=== PATIENT | female | born 1950 | race Hispanic/Latino ===

== ENCOUNTER 2017-11-18 06:27 | Emergency (ER) | payer OTHER ==
[2017-11-18 07:42] LABS: EOSINOPHILS % (AUTO) 3.5 % (0.0-8.0); HEMATOCRIT 41.5 % (36-48); LYMPHOCYTES % (AUTO) 21.8 % (21.0-51.0); MEAN CORPUSCULAR HEMOGLOBIN 28.8 pg (27.0-33.0); MEAN CORPUSCULAR HGB CONC 33.7 g/dL (32.0-36.0); MEAN CORPUSCULAR VOLUME 85.5 fL (79-99); MONOCYTES % (AUTO) 8.6 % (3.0-13.0); NEUTROPHILS % (AUTO) 65.1 % (40.0-77.0); PLATELET COUNT (AUTO) 174 K/uL (130-400); RED BLOOD CELL COUNT(AUTO) 4.86 MIL/uL (4.00-5.50); RED CELL DISTRIBUTION WIDTH 14.7 % (11.0-15.5); WHITE BLOOD COUNT (AUTO) 8.6 K/uL (4.8-10.8)
[2017-11-18 07:52] LABS: CREATININE 0.6 mg/dL (0.5-1.5)
[2017-11-18 08:08] LABS: ALBUMIN 3.6 g/dL (3.5-5.0); BILIRUBIN,TOTAL 0.8 mg/dL (0.2-1.0); CREATINE KINASE MB 0.9 ng/mL (0.5-3.6); TOTAL PROTEIN, SERUM 7.1 g/dL (6.0-8.3)
[2017-11-18 08:39] LABS: B-TYPE NATRIURETIC PEPTIDE 56 pg/mL (0-100)
== END 2017-11-18 09:16 | disposition home or self-care (01) ==
LOC: EDH 06:27
DX: R06.00 Dyspnea, unspecified (principal); M79.601 Pain in right arm; I10 Essential (primary) hypertension; E11.9 Type 2 diabetes mellitus without complications; Z86.718 Personal history of other venous thrombosis and embolism; Z88.0 Allergy status to penicillin
CPT/HCPCS: 36415; 71045; 80053; 82550; 82553; 83880; 84484; 85025; 93005

== ENCOUNTER 2019-08-12 08:10 | Emergency (ER) | payer OTHER ==
[2019-08-12 08:49] LABS: BASOPHILS % (AUTO) 0.6 % (0.0-5.0); EOSINOPHILS % (AUTO) 1.6 % (0.0-8.0); HEMATOCRIT 43.2 % (36-48); LYMPHOCYTES % (AUTO) 16.4 % (21.0-51.0); MEAN CORPUSCULAR HEMOGLOBIN 27.5 pg (27.0-33.0); MEAN CORPUSCULAR HGB CONC 31.9 g/dL (32.0-36.0); MEAN CORPUSCULAR VOLUME 86.2 fL (79-99); MONOCYTES % (AUTO) 7.1 % (3.0-13.0); NEUTROPHILS % (AUTO) 73.9 % (40.0-77.0); PLATELET COUNT (AUTO) 186 K/uL (130-400); RED BLOOD CELL COUNT(AUTO) 5.01 MIL/uL (4.00-5.50); RED CELL DISTRIBUTION WIDTH 13.9 % (11.0-15.5); WHITE BLOOD COUNT (AUTO) 10.6 K/uL (4.8-10.8)
[2019-08-12 08:56] LABS: CREATININE 0.5 mg/dL (0.5-1.5); POTASSIUM 4.3 mmol/L (3.5-5.1)
[2019-08-12 09:00] LABS: INR 1.02 (0.85-1.15); PROTHROMBIN TIME 10.7 SEC (9.6-11.6)
== END 2019-08-12 10:06 | disposition home or self-care (01) ==
LOC: EDH 08:10
DX: I70.211 Atherosclerosis of native arteries of extremities with intermittent claudication, right leg (principal); M79.602 Pain in left arm; E11.9 Type 2 diabetes mellitus without complications; I10 Essential (primary) hypertension; Z90.710 Acquired absence of both cervix and uterus; Z90.49 Acquired absence of other specified parts of digestive tract; Z88.0 Allergy status to penicillin
CPT/HCPCS: 36415; 80048; 85025; 85610; 85730; 93926; 93971

== ENCOUNTER → 2021-05-21 | Outpatient (CLI) | payer OTHER | END | disposition home or self-care (01) | LOC: SHCH 10:37 | PROVIDERS: ATTEND Internal Medicine Cardiovascular Disease | DX: R60.9 Edema, unspecified (principal) | CPT/HCPCS: 93970 ==

== ENCOUNTER → 2021-05-24 | Outpatient (CLI) | payer OTHER | END | disposition home or self-care (01) | LOC: RAH 10:09 | PROVIDERS: ATTEND Internal Medicine Cardiovascular Disease | DX: R09.89 Other specified symptoms and signs involving the circulatory and respiratory systems (principal) | CPT/HCPCS: 93880 ==

== ENCOUNTER → 2021-05-25 | Outpatient (CLI) | payer OTHER | END | disposition home or self-care (01) | LOC: SHCH 09:42 | PROVIDERS: ATTEND Internal Medicine Cardiovascular Disease | DX: I35.8 Other nonrheumatic aortic valve disorders (principal); I11.9 Hypertensive heart disease without heart failure; I25.10 Atherosclerotic heart disease of native coronary artery without angina pectoris | CPT/HCPCS: 93306; 93356 ==

== ENCOUNTER → 2021-06-20 | Outpatient (CLI) | payer OTHER | END | disposition home or self-care (01) | LOC: RAH 14:59 | PROVIDERS: ATTEND Internal Medicine Cardiovascular Disease | DX: Z13.6 Encounter for screening for cardiovascular disorders (principal) | CPT/HCPCS: 75571 ==

== ENCOUNTER → 2021-07-17 | Outpatient (CLI) | payer OTHER ==
[~2021-07-17] MED LIST: ALBUTEROL 0.083% 2.5 MG/3 ML INH IH ONE
== END | disposition home or self-care (01) ==
LOC: RESP 08:43
PROVIDERS: ATTEND Internal Medicine Cardiovascular Disease
DX: R06.02 Shortness of breath (principal)
CPT/HCPCS: 94060; 94727; 94729

== ENCOUNTER → 2022-04-07 | Outpatient (CLI) | payer OTHER | END | disposition home or self-care (01) | LOC: SHCH 13:00 | PROVIDERS: ATTEND Internal Medicine Cardiovascular Disease | DX: I87.2 Venous insufficiency (chronic) (peripheral) (principal); Z98.890 Other specified postprocedural states | CPT/HCPCS: 93971 ==

== ENCOUNTER → 2022-05-05 | Outpatient (CLI) | payer OTHER | END | disposition home or self-care (01) | LOC: SHCH 09:09 | PROVIDERS: ATTEND Internal Medicine Cardiovascular Disease | DX: I87.2 Venous insufficiency (chronic) (peripheral) (principal); Z98.890 Other specified postprocedural states | CPT/HCPCS: 93971 ==

== ENCOUNTER → 2022-09-23 | Outpatient (CLI) | payer OTHER | END | disposition home or self-care (01) | LOC: SHCH 13:17 | PROVIDERS: ATTEND Internal Medicine Cardiovascular Disease | DX: I87.2 Venous insufficiency (chronic) (peripheral) (principal); I87.1 Compression of vein | CPT/HCPCS: 93970 ==

== ENCOUNTER → 2024-02-25 | Outpatient (CLI) | payer OTHER | END | disposition home or self-care (01) | LOC: SHCH 12:32 | PROVIDERS: ATTEND Internal Medicine Cardiovascular Disease | DX: I25.10 Atherosclerotic heart disease of native coronary artery without angina pectoris (principal) | CPT/HCPCS: 93306 ==

== ENCOUNTER → 2025-04-27 | Outpatient (CLI) | payer OTHER ==
--- NOTE | 2025-04-27 14:26 | HMCIMG ---
US VENOUS DOPPLER UNILATERAL REASON: LEFT LEG PAIN COMPARISON: None Technique: Left lower extremity venous doppler ultrasound was performed with spectral analysis and color flow imaging technique. FINDINGS: There is a normal appearance of the common femoral, deep femoral, the profunda femoris and popliteal veins. Proximal calf veins appear normal as well. There is normal response to compression and augmentation. There is no evidence of deep venous thrombosis. IMPRESSION: Normal left lower lower extremity venous Doppler ultrasound.
== END | disposition home or self-care (01) ==
LOC: RAH 13:29
PROVIDERS: ATTEND Internal Medicine
DX: M79.605 Pain in left leg (principal)
CPT/HCPCS: 93971